=== PATIENT | female | born 1945 | race Caucasian/White ===

== ENCOUNTER 2018-01-10 23:13 | Inpatient (IN) | payer MEDICARE, MEDICAID ==
[2018-01-11] MEDS ORDERED: KETOROLAC TROMETHAMINE INJ/PF 30 MG/1 ML SDV IV ONE (00:12)
[2018-01-11] MEDS ORDERED: NORMAL SALINE 1000 ML 1,000 ML IV ONE (00:12)
[2018-01-11] MEDS ORDERED: LIDOCAINE 5% (700 MG) TRANSDERMAL ADH..PATCH TP ONE (00:28)
--- NOTE | 2018-01-11 00:29 | ER Document Report ---
ED General - General Chief Complaint: Flank Pain Stated Complaint: FLANK PAIN Time Seen by Provider: 01/11/18 00:11 Notes: Patient is a 72-year-old female with a past medical history of emphysema but no baseline oxygen dependence who presents with 3 days of progressively worsening left lower rib pain that became much worse this evening. She states the pain became much more intense abruptly without clear trigger. She describes it as a stabbing, aching pain that is worsened by taking a deep breath. Nothing improves the pain. She denies any history of similar symptoms in the past. She has not seen her general doctor regarding today's concerns. She denies any prior history of DVT or pulmonary embolus. No use of estrogen. Her family does note that she has had some mild swelling to her left upper extremity over the last several days. - Related Data Allergies/Adverse Reactions: clonazepam [From Klonopin] Allergy (Verified 01/11/18 00:47) paroxetine [From Paxil] Allergy (Verified 01/11/18 00:47) sulfamethoxazole [From Bactrim] Allergy (Verified 01/11/18 00:47) trimethoprim [From Bactrim] Allergy (Verified 01/11/18 00:47) Past Medical History - General Information source: Patient - Social History Smoking Status: Former Smoker Frequency of alcohol use: None Drug Abuse: None Lives with: Family Family History: Reviewed & Not Pertinent Review of Systems - Review of Systems Notes: Constitutional: Negative for fever. HENT: Negative for sore throat. Eyes: Negative for visual changes. Cardiovascular: Negative for chest pain. Respiratory: Positive for shortness of breath. Gastrointestinal: Negative for abdominal pain, vomiting or diarrhea. Genitourinary: Negative for dysuria. Musculoskeletal: Positive for pleuritic left-sided pain Skin: Negative for rash. Neurological: Negative for headaches, weakness or numbness. 10 point ROS negative except as marked above and in HPI. Physical Exam - Vital signs Vitals: Temp Pulse Resp BP Pulse Ox 97.9 F 77 18 101/68 89 L 01/10/18 23:51 01/10/18 23:51 01/10/18 23:51 01/10/18 23:51 01/10/18 23:51 Interpretation: Hypoxic Notes: PHYSICAL EXAMINATION: GENERAL: Appears moderately uncomfortable but in no acute distress HEAD: Atraumatic, normocephalic. EYES: Pupils equal round and reactive to light, extraocular movements intact, sclera anicteric, conjunctiva are normal. ENT: nares patent, oropharynx clear without exudates. Moderately dry mucous membranes. NECK: Normal range of motion, supple without lymphadenopathy LUNGS: Breath sounds clear to auscultation bilaterally and equal. No wheezes rales or rhonchi. HEART: Regular rate and rhythm without murmurs ABDOMEN: Soft, nontender, normoactive bowel sounds. No guarding, no rebound. No masses appreciated. EXTREMITIES: Normal range of motion, mild swelling to the left upper extremity just above the medial epicondyle NEUROLOGICAL: No focal neurological deficits. Moves all extremities spontaneously and on command. PSYCH: Normal mood, normal affect. SKIN: Warm, Dry, normal turgor, no rashes or lesions noted. Course - Re-evaluation Re-evalutation: 01/11/18 00:28 Patient presents with 2 days of progressively worsening left lower rib pain on inspiration consistent with pleuritic pain. Vitals at time of presentation are notable for mild hypoxia with saturations on room air between 89-90% and she does not normally have a baseline oxygen dependency. My primary concern is for a possible acute pulmonary embolus given clinical history although she is not tachycardic, does not use supplemental estrogen, no history of similar in the past and no history of chemotherapy. Will proceed with d-dimer with a cut off of 0.74. Also obtain a chest x-ray as a pneumonia could present in a similar fashion although patient is not having fever or constitutional symptoms. Pyonephritis could alternatively be considered although it would be atypical for this to have only pain with inspiration. Abdominal exam tenderness rebound or guarding. Will proceed with labs, chest x-ray, symptomatic control and reassess the patient. 01/11/18 01:42 D-dimer is markedly elevated. Will proceed with CTA of the chest. Patient does have some swelling just above the medial epicondyle on the left worrisome for possible upper extremity DVT in conjunction with her presentation. 01/11/18 03:[address] does show multiple pulmonary emboli as well as findings consistent with a new diagnosis of lung malignancy. I have gone to the bedside and explained these findings to the patient as well as her need for hospitalization. Lovenox has been started. The patient has verbalized understanding of this grave diagnosis. I have discussed with the hospitalist for admission and he has accepted. - Vital Signs Vital signs: Temp Pulse Resp BP Pulse Ox 97.9 F 77 14 121/68 94 01/10/18 23:51 01/10/18 23:51 01/11/18 02:09 01/11/18 02:09 01/11/18 00:55 - Laboratory Result Diagrams: 01/11/18 00:35 01/11/18 00:35 Laboratory results interpreted by me: 01/11/18 01/11/18 01/11/18 00:35 00:35 00:35 WBC 12.2 H Absolute Neutrophils 8.8 H D-Dimer 9.61 H Glucose 139 H Urine Protein 01/11/18 00:50 WBC Absolute Neutrophils D-Dimer Glucose Urine Protein 30 H - Diagnostic Test Radiology reviewed: Image reviewed, Reports reviewed Radiology results interpreted by me: 01/11/18 02:34 Chest x-ray: No acute infiltrate or pneumothorax - EKG Interpretation by Me Additional EKG results interpreted by me: 01/11/18 02:34 Sinus rhythm. Rate 84. No ST elevations or depressions. QTC 402. PACs are present Discharge - Discharge Clinical Impression: Bilateral pulmonary embolism, Lung nodules, Hypoxia, Pleuritic pain Condition: Fair Disposition: ADMITTED INPATIENT Admitting Provider: Hospitalist Unit Admitted: Telemetry
[2018-01-11 00:57] LABS: ABSOLUTE BASOPHILS # (AUTO) 0.1 10^3/uL (0.0-0.2); ABSOLUTE EOSINOPHILS # (AUTO) 0.2 10^3/uL (0.0-0.6); ABSOLUTE LYMPHOCYTES (AUTO) 2.1 10^3/uL (0.5-4.7); ABSOLUTE NEUT (AUTO) 8.8 10^3/uL (1.7-8.2); BASOPHILS % (AUTO) 1.2 % (0-2); EOSINOPHILS % (AUTO) 1.4 % (0-6); HEMATOCRIT 36.1 % (36.0-47.0); HEMOGLOBIN 12.4 g/dL (12.0-15.5); LYMPHOCYTES % (AUTO) 17.2 % (13-45); MEAN CORPUSCULAR HEMOGLOBIN 29.3 pg (27.0-33.4); MEAN CORPUSCULAR HGB CONC 34.4 g/dL (32.0-36.0); MEAN CORPUSCULAR VOLUME 85 fl (80-97); MONOCYTES % (AUTO) 8.2 % (3-13); PLATELET COUNT 232 10^3/uL (150-450); RED BLOOD COUNT 4.24 10^6/uL (3.72-5.28); RED CELL DISTRIBUTION WIDTH 13.2 % (11.5-14.0); TOTAL CELLS COUNTED % (AUTO) 100 %; WHITE BLOOD COUNT 12.2 10^3/uL (4.0-10.5)
[2018-01-11 01:09] LABS: ALANINE AMINOTRANSFERASE 16 U/L (9-52); ALBUMIN 3.7 g/dL (3.5-5.0); ALKALINE PHOSPHATASE 92 U/L (38-126); ANION GAP 11 (5-19); ASPARTATE AMINO TRANSFERASE 17 U/L (14-36); BILIRUBIN,DIRECT 0.3 mg/dL (0.0-0.4); BILIRUBIN,TOTAL 0.5 mg/dL (0.2-1.3); BLOOD UREA NITROGEN 11 mg/dL (7-20); CARBON DIOXIDE 25 mmol/L (22-30); CHLORIDE 105 mmol/L (98-107); GLUCOSE 139 mg/dL (75-110); POTASSIUM 4.1 mmol/L (3.6-5.0); SODIUM 141.3 mmol/L (137-145); TOTAL PROTEIN 6.6 g/dL (6.3-8.2)
[2018-01-11 01:10] LABS: APPEARANCE,URINE CLEAR; BILIRUBIN,URINE NEGATIVE (NEGATIVE); COLOR,URINE YELLOW; GLUCOSE, URINE NEGATIVE (NEGATIVE); KETONES,URINE NEGATIVE (NEGATIVE); LEUKOCYTE ESTERASE,URINE NEGATIVE (NEGATIVE); NITRITE,URINE NEGATIVE (NEGATIVE); PROTEIN,URINE 30 mg/dL (NEGATIVE); UROBILINOGEN,URINE NEGATIVE mg/dL (<2.0)
--- NOTE | 2018-01-11 02:54 | RADIOLOGY REPORT (SQ) ---
EXAM DESCRIPTION: XR CHEST 1 VIEW COMPLETED DATE/TME: 01/11/2018 00:26 CLINICAL HISTORY: sob COMPARISON: None. FINDINGS: Single frontal view of the chest. The cardiomediastinal silhouette has normal size and contour. No consolidation, pneumothorax, or pleural effusion. No displaced rib fractures identified. Leads overlie the chest. Upper abdominal soft tissues are unremarkable. IMPRESSION: 1. No acute pulmonary process identified.
[2018-01-11] MEDS ORDERED: ENOXAPARIN SODIUM INJ 80 MG/0.8 ML DISP.SYRIN SUBCUT SCH ×2 (03:15→18:00)
--- NOTE | 2018-01-11 03:15 | RADIOLOGY REPORT (SQ) ---
EXAM DESCRIPTION: CT CHEST ANGIOGRAPHY WITHOUT THEN WITH IV CONTRAST COMPLETED DATE/TME: 01/11/2018 01:41 CLINICAL HISTORY: ELEVATED D-DIMER COMPARISON: None Available. TECHNIQUE: CTA of the chest obtained following the uncomplicated intravenous administration of 65 mL Isovue-370. 3-D/MIP reformatted images of the chest available for evaluation. DLP: 579.94 mGycm FINDINGS: Chest: Pulmonary arteries: Contrast bolus is adequate. Acute filling defects noted in the lingular, left lower lobar, right lower lobar, and right middle lobar and segmental pulmonary arterial branches. Enlargement of the main pulmonary artery. Moderate clot burden. Thyroid: 2.0 cm peripherally calcified right thyroid nodule. Great Vessels:Great vessels have normal anatomic configuration. Thoracic Aorta: After scar calcification of the thoracic aorta. Heart: No definite right heart strain. Coronary artery atherosclerosis. No pericardial effusion or cardiomegaly. Lymph Nodes: Calcified mediastinal lymph nodes. Esophagus:No abnormalities of the esophagus identified. Other:No additional findings. Lungs: Severe centrilobular emphysematous changes. Spiculated superior segment left lower lobe pulmonary nodule measuring 1.4 cm. Second spiculated nodule involving the right upper lobe best seen on image #29 measuring 1.2 cm. Linear discoid atelectasis in the right lower lobe. There are 2 0.4 cm pulmonary nodules in the right lower lobe. No lobar consolidation. Pleura:No pleural effusion or pneumothorax. Trachea/Airways:No abnormalities of the visualized trachea or airways. Bones: Degenerative change of the spine. Upper Abdomen:Limited images of the upper abdomen demonstrate no definite abnormalities of visualized portions of the liver, gallbladder, pancreas, spleen, adrenal glands, or kidneys. IMPRESSION: 1. Findings compatible with acute pulmonary embolus involving the lobar, segmental, and subsegmental pulmonary arteries of the lingula, right middle lobe, and bilateral lower lobes. Moderate clot burden. No definite right heart strain. 2. Bilateral spiculated pulmonary nodules, with the left superior segment lower lobe pulmonary nodule measuring 1.4 cm and the right upper lobe nodule measuring 1.2 cm. These are concerning for malignancy. Consider biopsy or PET/CT. 3. Coronary artery atherosclerosis. 4. Centrilobular emphysematous changes. 5. 2.0 cm right thyroid nodule. Correlation with thyroid ultrasound Urgent finding reported to Dr. Jurado at 01/11/2018 2:08 AM CDT This exam was performed according to our departmental dose-optimization program, which includes automated exposure control, adjustment of the mA and/or kV according to patient size and/or use of iterative reconstruction technique.
[2018-01-11] MEDS ORDERED: ACETAMINOPHEN 325 MG TABLET PO ONE (03:35)
[2018-01-11] MEDS ORDERED: IPRATROPIUM/ALBUTEROL 0.5-2.5 MG/3 ML AMPUL NEB PRN (03:44)
[2018-01-11] MEDS ORDERED: OXYCODONE-ACETAMINOPHEN 5-325 MG TABLET PO PRN (03:44)
[2018-01-11] MEDS ORDERED: ONDANSETRON HCL INJ/PF 4 MG/2 ML SDV IV PRN (03:44)
--- NOTE | 2018-01-11 04:05 | PDOC H&P ---
History of Present Illness Admission Date/PCP: 01/11/18 03:39 History of Present Illness: CHRISTIAN MIKE is a 72 year old female patient with past medical history of 2 strokes, [place] and she is status post stent placement and COPD presented with chest pain. Patient reports his she has been in her usual baseline state of health up until 3 days when she started to have left chest pain characterized as sharp stabbing and it gets worse progressively. Since she has elevated d-dimer CT of the chest was done and it reported as acute bilateral emboli and this incidental finding of bilateral spiculated pulmonary nodules which worrisome for malignancy. Of note patient had been a heavy smoker and she quit 6 months ago. She denies fever, chills, cough, palpitation or diaphoresis. She does not have nausea, vomiting, abdominal pain or diarrhea. Past Medical History Cardiac Medical History: Reports: Coronary Artery Disease, Myocardial Infarction Pulmonary Medical History: Reports: Chronic Obstructive Pulmonary Disease (COPD) Past Surgical History Past Surgical History: Reports: Cardiac Catheterization Social History Lives with: Family Smoking Status: Former Smoker Frequency of Alcohol Use: None Hx Recreational Drug Use: No Drugs: None - Advance Directive Resuscitation Status: Full Code Family History Family History: Reviewed & Not Pertinent, DM, Hypertension Parental Family History Reviewed: Yes Children Family History Reviewed: Yes Sibling(s) Family History Reviewed.: Yes Medication/Allergy Allergies/Adverse Reactions: clonazepam [From Klonopin] Allergy (Verified 01/11/18 00:47) paroxetine [From Paxil] Allergy (Verified 01/11/18 00:47) sulfamethoxazole [From Bactrim] Allergy (Verified 01/11/18 00:47) trimethoprim [From Bactrim] Allergy (Verified 01/11/18 00:47) Review of Systems Constitutional: ABSENT: chills, fever(s), headache(s), weight gain, weight loss Eyes: ABSENT: visual disturbances Cardiovascular: ABSENT: chest pain, dyspnea on exertion, edema, orthropnea, palpitations Respiratory: PRESENT: other - Chest pain Gastrointestinal: ABSENT: abdominal pain, constipation, diarrhea, hematemesis, hematochezia, nausea, vomiting Neurological: ABSENT: abnormal gait, abnormal speech, confusion, dizziness, focal weakness, syncope Physical Exam Vital Signs: Temp Pulse Resp BP Pulse Ox 97.9 F 77 14 121/68 94 01/10/18 23:51 01/10/18 23:51 01/11/18 02:09 01/11/18 02:09 01/11/18 00:55 General appearance: PRESENT: mild distress Head exam: PRESENT: atraumatic, normocephalic Eye exam: PRESENT: conjunctiva pink, EOMI, PERRLA. ABSENT: scleral icterus Neck exam: ABSENT: carotid bruit, JVD, lymphadenopathy, thyromegaly Respiratory exam: PRESENT: wheezes - Mild wheezing Cardiovascular exam: PRESENT: RRR. ABSENT: diastolic murmur, rubs, systolic murmur GI/Abdominal exam: PRESENT: normal bowel sounds, soft. ABSENT: distended, guarding, mass, organolmegaly, rebound, tenderness Extremities exam: PRESENT: full ROM. ABSENT: calf tenderness, clubbing, pedal edema Neurological exam: PRESENT: alert, awake, oriented to time, oriented to situation Psychiatric exam: PRESENT: normal mood Results Impressions: Chest X-Ray 01/11/18 00:26 IMPRESSION: 1. No acute pulmonary process identified. Chest/Abdomen CTA 01/11/18 01:41 IMPRESSION: 1. Findings compatible with acute pulmonary embolus involving the lobar, segmental, and subsegmental pulmonary arteries of the lingula, right middle lobe, and bilateral lower lobes. Moderate clot burden. No definite right heart strain. 2. Bilateral spiculated pulmonary nodules, with the left superior segment lower lobe pulmonary nodule measuring 1.4 cm and the right upper lobe nodule measuring 1.2 cm. These are concerning for malignancy. Consider biopsy or PET/CT. 3. Coronary artery atherosclerosis. 4. Centrilobular emphysematous changes. 5. 2.0 cm right thyroid nodule. Correlation with thyroid ultrasound Urgent finding reported to Dr. Jurado at 01/11/2018 2:08 AM CDT This exam was performed according to our departmental dose-optimization program, which includes automated exposure control, adjustment of the mA and/or kV according to patient size and/or use of iterative reconstruction technique. Assessment & Plan - Diagnosis (1) Acute Bilateral pulmonary embolus Is this a current diagnosis for this admission?: Yes Plan: Patient has been started on Lovenox 65 mg subcu twice daily. I overlapped her with Coumadin. PT/INR in the morning (2) Bilateral lung nodules Is this a current diagnosis for this admission?: Yes Plan: With history of long-standing heavy smoking, these nodules are worrisome for malignancy. I will request CT-guided lung biopsy and consult oncologist. (3) COPD (chronic obstructive pulmonary disease) Qualifiers: COPD type: emphysema Emphysema type: centrilobular Qualified Code(s): J43.2 - Centrilobular emphysema Is this a current diagnosis for this admission?: Yes Plan: As needed bronchodilator and supplemental oxygen. (4) Coronary artery disease Qualifiers: Coronary Disease-Associated Artery/Lesion type: [place] artery Is this a current diagnosis for this admission?: Yes Plan: Stable no angina. Continue her home medications. - Time Time Spent: 30 to 50 Minutes - Inpatient Certification Medical Necessity: Need Close Monitoring Due to Risk of Patient Decompensation, Need For Continuous Telemetry Monitoring
[2018-01-11 04:07] LABS: INTERNATIONAL RATION (INR) 0.98; PROTHROMBIN TIME 13.5 SEC (11.4-15.4)
[2018-01-11 04:12] LABS: NT PRO BNP 286 pg/mL (5-900)
[2018-01-11 04:14] LABS: TROPONIN I < 0.012 ng/mL
[2018-01-11 06:01] LABS: HEMATOCRIT 33.9 % (36.0-47.0); HEMOGLOBIN 11.4 g/dL (12.0-15.5); MEAN CORPUSCULAR HEMOGLOBIN 28.6 pg (27.0-33.4); MEAN CORPUSCULAR HGB CONC 33.5 g/dL (32.0-36.0); MEAN CORPUSCULAR VOLUME 85 fl (80-97); PLATELET COUNT 217 10^3/uL (150-450); RED BLOOD COUNT 3.97 10^6/uL (3.72-5.28); RED CELL DISTRIBUTION WIDTH 13.3 % (11.5-14.0); WHITE BLOOD COUNT 9.2 10^3/uL (4.0-10.5)
[2018-01-11] MEDS: LANSOPRAZOLE 30 MG TAB.RAP.DR PO SCH (06:59)
--- NOTE | 2018-01-11 08:32 | EKG REPORT ---
SEVERITY:- ABNORMAL ECG - SINUS RHYTHM MULTIPLE ATRIAL PREMATURE COMPLEXES BORDERLINE T ABNORMALITIES, DIFFUSE, : Confirmed by: Tay Paula MD 11-Jan-2018 08:31:50
--- NOTE | 2018-01-11 13:02 | PDOC CONSULTATION ---
Consultation Consult Date: 01/11/18 Attending physician:: JAIRO VIDAL Consult reason:: Bilateral pulmonary nodules, PE History of Present Illness Admission Date/PCP: 01/11/18 03:39 Patient complains of: Shortness of breath, left-sided chest pain History of Present Illness: CHRISTIAN MIKE is a 72 year old female with extensive smoking history, quit about 6 months ago but prior to that had about 79-[id number] history of tobacco, presented with a 2 day history of increasing shortness of breath, and left- sided chest pain, especially in deep inspiration, ultimately that brought her into the ED where they did CT of the chest and this indicated bilateral PE, with large burden of clot, but also bilateral pulmonary nodules left and right nodules that were up to 1.2-1.4 cm. She denies any weight loss, at rest she is short of breath at times, and does probably have some element of COPD. She is not on home O2 however. Past Medical History Cardiac Medical History: Reports: Coronary Artery Disease, Myocardial Infarction Pulmonary Medical History: Reports: Chronic Obstructive Pulmonary Disease (COPD) Psychiatric Medical History: Reports: Depression Past Surgical History Past Surgical History: Reports: Cardiac Catheterization Social History Information Source: Patient Lives with: Family Smoking Status: Former Smoker Cigarettes Packs Per Day: 1 Number of Years Smokin Last Time Smoked: 08-17-17 Frequency of Alcohol Use: None Hx Recreational Drug Use: No Drugs: None Hx Prescription Drug Abuse: No - Advance Directive Resuscitation Status: Full Code Family History Family History: Reviewed & Not Pertinent, DM, Hypertension Parental Family History Reviewed: Yes Children Family History Reviewed: Yes Sibling(s) Family History Reviewed.: Yes Medication/Allergy Home Medications: Albuterol Sulfate [Proair HFA] 2 puff IH Q6HP PRN 01/11/18 Aspirin [Aspirin EC] 81 mg PO DAILY 01/11/18 Ciprofloxacin HCl [Cipro] 250 mg PO [id number] 01/11/18 Ibuprofen [Motrin 800 mg Tablet] 800 mg PO Q8HP PRN 01/11/18 Metoprolol Succinate [Toprol Xl] 25 mg PO DAILY 01/11/18 Nitroglycerin [Nitrostat] 0.4 mg SL DAILYP PRN 01/11/18 Pantoprazole Sodium [Protonix] 40 mg PO DAILY 01/11/18 Pravastatin Sodium [Pravachol] 40 mg PO DAILY 01/11/18 Sertraline HCl [Zoloft 50 mg Tablet] 50 mg PO DAILY 01/11/18 Allergies/Adverse Reactions: clonazepam [From Klonopin] Allergy (Verified 01/11/18 00:47) paroxetine [From Paxil] Allergy (Verified 01/11/18 00:47) sulfamethoxazole [From Bactrim] Allergy (Verified 01/11/18 00:47) trimethoprim [From Bactrim] Allergy (Verified 01/11/18 00:47) Review of Systems Constitutional: ABSENT: chills, fever(s), headache(s), weight gain, weight loss Eyes: ABSENT: visual disturbances Ears: ABSENT: hearing changes Cardiovascular: PRESENT: chest pain, dyspnea on exertion. ABSENT: edema, orthropnea, palpitations Respiratory: ABSENT: cough, hemoptysis Gastrointestinal: ABSENT: abdominal pain, constipation, diarrhea, hematemesis, hematochezia, nausea, vomiting Genitourinary: ABSENT: dysuria, hematuria Musculoskeletal: ABSENT: joint swelling Integumentary: ABSENT: rash, wounds Neurological: ABSENT: abnormal gait, abnormal speech, confusion, dizziness, focal weakness, syncope Psychiatric: ABSENT: anxiety, depression, homidical ideation, suicidal ideation Endocrine: ABSENT: cold intolerance, heat intolerance, polydipsia, polyuria Hematologic/Lymphatic: ABSENT: easy bleeding, easy bruising Physical Exam Vital Signs: Temp Pulse Resp BP Pulse Ox 97.7 F 67 16 98/42 L 96 01/11/18 12:06 01/11/18 12:06 01/11/18 12:06 01/11/18 12:06 01/11/18 12:06 Intake & Output 01/10/18 01/11/18 01/12/18 06:59 06:59 06:59 Weight 68.8 kg General appearance: PRESENT: no acute distress, well-developed, well-nourished Head exam: PRESENT: atraumatic, normocephalic Eye exam: PRESENT: conjunctiva pink, EOMI, PERRLA. ABSENT: scleral icterus Ear exam: PRESENT: normal external ear exam Mouth exam: PRESENT: moist, tongue midline Neck exam: ABSENT: carotid bruit, JVD, lymphadenopathy, thyromegaly Respiratory exam: PRESENT: clear to auscultation mela. ABSENT: rales, rhonchi, wheezes Cardiovascular exam: PRESENT: RRR. ABSENT: diastolic murmur, rubs, systolic murmur Pulses: PRESENT: normal dorsalis pedis pul Vascular exam: PRESENT: normal capillary refill GI/Abdominal exam: PRESENT: normal bowel sounds, soft. ABSENT: distended, guarding, mass, organolmegaly, rebound, tenderness Rectal exam: PRESENT: deferred Extremities exam: PRESENT: full ROM. ABSENT: calf tenderness, clubbing, pedal edema Neurological exam: PRESENT: alert, awake, oriented to person, oriented to place , oriented to time, oriented to situation, CN II-XII grossly intact. ABSENT: motor sensory deficit Psychiatric exam: PRESENT: appropriate affect, normal mood. ABSENT: homicidal ideation, suicidal ideation Skin exam: PRESENT: dry, intact, warm. ABSENT: cyanosis, rash Results Laboratory Results: 01/11/18 05:53 01/11/18 05:53 WBC 9.2 RBC 3.97 Hgb 11.4 L Hct 33.9 L MCV 85 MCH 28.6 MCHC 33.5 RDW 13.3 Plt Count 217 Impressions: Chest X-Ray 01/11/18 00:26 IMPRESSION: 1. No acute pulmonary process identified. Chest/Abdomen CTA 01/11/18 01:41 IMPRESSION: 1. Findings compatible with acute pulmonary embolus involving the lobar, segmental, and subsegmental pulmonary arteries of the lingula, right middle lobe, and bilateral lower lobes. Moderate clot burden. No definite right heart strain. 2. Bilateral spiculated pulmonary nodules, with the left superior segment lower lobe pulmonary nodule measuring 1.4 cm and the right upper lobe nodule measuring 1.2 cm. These are concerning for malignancy. Consider biopsy or PET/CT. 3. Coronary artery atherosclerosis. 4. Centrilobular emphysematous changes. 5. 2.0 cm right thyroid nodule. Correlation with thyroid ultrasound Urgent finding reported to Dr. Jurado at 01/11/2018 2:08 AM CDT This exam was performed according to our departmental dose-optimization program, which includes automated exposure control, adjustment of the mA and/or kV according to patient size and/or use of iterative reconstruction technique. Status: Image reviewed by me Assessment & Plan - Diagnosis (1) Acute Bilateral pulmonary embolus Is this a current diagnosis for this admission?: Yes Plan: Bilateral PE, I would like to switch him from Lovenox and warfarin to Xarelto. She will be on Xarelto 15 mg twice daily. I have asked her to try and get up and walk down the [place] today and see how she feels, she really needs to feel appropriate with at least walking around a little bit without severe chest pain shortness of breath to be able to go home. (2) Bilateral lung nodules Is this a current diagnosis for this admission?: Yes Plan: Overall concerning for malignancy but can be something else, we would like to proceed with PET/CT as an outpatient. Would not consider CT-guided biopsy now, would want her PE to be treated for at least 2 weeks prior to doing this. Would also want to confirm that these are PET positive lesions before we biopsied her given her current lung status as she has the new PE and known COPD and it would be very concerning to have pneumothorax. - Time Time Spent: Greater than 70 Minutes Medications reviewed and adjusted accordingly: Yes Within: within 48 hours - Inpatient Certification Based on my medical assessment, after consideration of the patient's comorbidities, presenting symptoms, or acuity I expect that the services needed warrant INPATIENT care.: Yes I certify that my determination is in accordance with my understanding of Medicare's requirements for reasonable and necessary INPATIENT services [42 CFR 412.3e].: Yes Medical Necessity: Need For Continuous Telemetry Monitoring, Risk of Complication if Not Cared For in Hospital
[2018-01-11] MEDS ORDERED: ALBUTEROL SULFATE HFA (90 MCG/PUFF) 8 GM MDI (1 MDI/ER DISP) IH PRN (14:10)
--- NOTE | 2018-01-11 14:13 | PDOC PROGRESS REPORT ---
Subjective Progress Note for:: 01/11/18 Subjective:: Patient is breathing well today she says. She was having significant left lateral lower pleuritic chest pain which is much improved she states. No fevers or chills. No sputum production. No leg swelling or pain. Spoke at length about both her pulmonary emboli and the spiculated lung nodules. Her appetite is fine. No nausea vomiting abdominal pain. Urinating normally. Reason For Visit: ACUTE BILATERAL PULMONARY EMBOLISM. BILATERAL Physical Exam Vital Signs: Temp Pulse Resp BP Pulse Ox 97.7 F 67 16 98/42 L 96 01/11/18 12:06 01/11/18 12:06 01/11/18 12:06 01/11/18 12:06 01/11/18 12:06 Intake & Output 01/10/18 01/11/18 01/12/18 06:59 06:59 06:59 Weight 68.8 kg General appearance: PRESENT: no acute distress, cooperative, well-developed, well-nourished Head exam: PRESENT: atraumatic, normocephalic Eye exam: ABSENT: conjunctival injection, scleral icterus Mouth exam: PRESENT: moist Respiratory exam: PRESENT: decreased breath sounds, unlabored. ABSENT: rales, rhonchi, wheezes Cardiovascular exam: PRESENT: RRR. ABSENT: systolic murmur Pulses: PRESENT: normal radial pulses GI/Abdominal exam: PRESENT: normal bowel sounds, soft. ABSENT: distended, guarding, tenderness Rectal exam: PRESENT: deferred Extremities exam: ABSENT: pedal edema Musculoskeletal exam: PRESENT: normal inspection Neurological exam: PRESENT: alert, awake, oriented to person, oriented to place , oriented to situation, CN II-XII grossly intact Psychiatric exam: PRESENT: appropriate affect. ABSENT: anxious Skin exam: PRESENT: dry, intact, warm Results Laboratory Results: 01/11/18 05:53 01/11/18 05:53 WBC 9.2 RBC 3.97 Hgb 11.4 L Hct 33.9 L MCV 85 MCH 28.6 MCHC 33.5 RDW 13.3 Plt Count 217 Impressions: Chest X-Ray 01/11/18 00:26 IMPRESSION: 1. No acute pulmonary process identified. Chest/Abdomen CTA 01/11/18 01:41 IMPRESSION: 1. Findings compatible with acute pulmonary embolus involving the lobar, segmental, and subsegmental pulmonary arteries of the lingula, right middle lobe, and bilateral lower lobes. Moderate clot burden. No definite right heart strain. 2. Bilateral spiculated pulmonary nodules, with the left superior segment lower lobe pulmonary nodule measuring 1.4 cm and the right upper lobe nodule measuring 1.2 cm. These are concerning for malignancy. Consider biopsy or PET/CT. 3. Coronary artery atherosclerosis. 4. Centrilobular emphysematous changes. 5. 2.0 cm right thyroid nodule. Correlation with thyroid ultrasound Urgent finding reported to Dr. Jurado at 01/11/2018 2:08 AM CDT This exam was performed according to our departmental dose-optimization program, which includes automated exposure control, adjustment of the mA and/or kV according to patient size and/or use of iterative reconstruction technique. Assessment & Plan - Diagnosis (1) Bilateral lung nodules Is this a current diagnosis for this admission?: Yes Plan: Spiculated lesions in both lungs. Long-standing tobacco history.SHe has been seen by Dr. Garcia who is consulting. Now we will continue anticoagulation with Xarelto and Dr. Garcia will see her in the office as an outpatient, he will plan for PET scan to better evaluate the lesions and to see if there are other suspicious lesions. Patient would like to stay locally for now for this workup. Her daughter and granddaughters live in this area. She lives 3 hours away near her sister. (2) Bilateral pulmonary embolism Is this a current diagnosis for this admission?: Yes Plan: Will transition to Xarelto per Dr. Garcia. He will follow her in clinic. We will monitor her respiratory status and for evidence of right heart strain or other complications related to these pulmonary emboli for the next several days and then she will be discharged once appropriate. Monitor BMP and CBC. (3) COPD (chronic obstructive pulmonary disease) Qualifiers: COPD type: emphysema Emphysema type: centrilobular Qualified Code(s): J43.2 - Centrilobular emphysema Is this a current diagnosis for this admission?: Yes (4) Coronary artery disease Qualifiers: Coronary Disease-Associated Artery/Lesion type: kaw artery Is this a current diagnosis for this admission?: Yes Plan: Stable for now. Continue to monitor on telemetry. Restart home medications including daily aspirin and metoprolol succinate. (5) Pleuritic pain Is this a current diagnosis for this admission?: Yes Plan: Much improved. Patient does not want to try opioid pain medications at this time. She will continue with as needed Tylenol for now. - Time Time Spent with patient: 35 or more minutes Medications reviewed and adjusted accordingly: Yes Anticipated discharge: Home - Inpatient Certification Based on my medical assessment, after consideration of the patient's comorbidities, presenting symptoms, or acuity I expect that the services needed warrant INPATIENT care.: Yes I certify that my determination is in accordance with my understanding of Medicare's requirements for reasonable and necessary INPATIENT services [42 CFR 412.3e].: Yes Medical Necessity: Need Close Monitoring Due to Risk of Patient Decompensation
[2018-01-11] MEDS ORDERED: OXYCODONE HCL IR 5 MG TABLET ONE (15:46)
--- NOTE | 2018-01-11 15:51 | EKG REPORT ---
SEVERITY:- BORDERLINE ECG - SINUS RHYTHM BORDERLINE T ABNORMALITIES, ANT-LAT LEADS : Confirmed by: Tay Paula MD 11-Jan-2018 15:51:11
[2018-01-11] MEDS ORDERED: OXYCODONE HCL IR 5 MG TABLET PO PRN (16:03)
[2018-01-11] MEDS: RIVAROXABAN 15 MG TABLET PO SCH (17:30)
[2018-01-11] MEDS: ACETAMINOPHEN 325 MG TABLET PO PRN (20:41)
[2018-01-11] MEDS: ATORVASTATIN CALCIUM 10 MG TABLET PO SCH (21:56)
[2018-01-11] MEDS ORDERED: WARFARIN SODIUM 3 MG TABLET PO SCH (22:00)
[2018-01-12 06:01] LABS: HEMOGLOBIN 11.9 g/dL (12.0-15.5); MEAN CORPUSCULAR HEMOGLOBIN 28.8 pg (27.0-33.4); MEAN CORPUSCULAR VOLUME 85 fl (80-97); PLATELET COUNT 207 10^3/uL (150-450); RED BLOOD COUNT 4.14 10^6/uL (3.72-5.28); RED CELL DISTRIBUTION WIDTH 13.5 % (11.5-14.0); WHITE BLOOD COUNT 10.2 10^3/uL (4.0-10.5)
[2018-01-12 06:12] LABS: INTERNATIONAL RATION (INR) 1.47; PROTHROMBIN TIME 18.6 SEC (11.4-15.4)
[2018-01-12] MEDS: LANSOPRAZOLE 30 MG TAB.RAP.DR PO SCH ×2 (06:28→06:30)
[2018-01-12] MEDS: RIVAROXABAN 15 MG TABLET PO SCH ×2 (06:28→17:19)
[2018-01-12 06:34] LABS: ANION GAP 8 (5-19); BLOOD UREA NITROGEN 8 mg/dL (7-20); CALCIUM 9.1 mg/dL (8.4-10.2); CARBON DIOXIDE 30 mmol/L (22-30); CHLORIDE 106 mmol/L (98-107); GLUCOSE 106 mg/dL (75-110); POTASSIUM 4.8 mmol/L (3.6-5.0); SODIUM 143.6 mmol/L (137-145)
--- NOTE | 2018-01-12 08:16 | PDOC PROGRESS REPORT ---
Subjective Progress Note for:: 01/12/18 Subjective:: She seems better today, did walk out of the room a little bit. I saw that aspirin was restarted, I went ahead and discontinued it today, I do not believe it would be giving more of a benefit over full anticoagulation with Xarelto, and probably would increase bleeding risk. Reason For Visit: ACUTE BILATERAL PULMONARY EMBOLISM. BILATERAL Physical Exam Vital Signs: Temp Pulse Resp BP Pulse Ox 98.4 F 81 18 105/53 L 97 01/12/18 07:10 01/12/18 07:10 01/12/18 07:10 01/12/18 07:10 01/12/18 07:10 Intake & Output 01/11/18 01/12/18 01/13/18 06:59 06:59 06:59 Intake Total 1752 Balance 1752 Weight 68.8 kg 72.2 kg General appearance: PRESENT: no acute distress, well-developed, well-nourished Head exam: PRESENT: atraumatic, normocephalic Eye exam: PRESENT: conjunctiva pink, EOMI, PERRLA. ABSENT: scleral icterus Ear exam: PRESENT: normal external ear exam Mouth exam: PRESENT: moist, tongue midline Neck exam: ABSENT: carotid bruit, JVD, lymphadenopathy, thyromegaly Respiratory exam: PRESENT: clear to auscultation mela. ABSENT: rales, rhonchi, wheezes Cardiovascular exam: PRESENT: RRR. ABSENT: diastolic murmur, rubs, systolic murmur Pulses: PRESENT: normal dorsalis pedis pul Vascular exam: PRESENT: normal capillary refill GI/Abdominal exam: PRESENT: normal bowel sounds, soft. ABSENT: distended, guarding, mass, organolmegaly, rebound, tenderness Rectal exam: PRESENT: deferred Extremities exam: PRESENT: full ROM. ABSENT: calf tenderness, clubbing, pedal edema Neurological exam: PRESENT: alert, awake, oriented to person, oriented to place , oriented to time, oriented to situation, CN II-XII grossly intact. ABSENT: motor sensory deficit Psychiatric exam: PRESENT: appropriate affect, normal mood. ABSENT: homicidal ideation, suicidal ideation Skin exam: PRESENT: dry, intact, warm. ABSENT: cyanosis, rash Results Laboratory Results: 01/12/18 05:12 01/12/18 05:12 01/12/18 01/12/18 05:12 05:12 WBC 10.2 RBC 4.14 Hgb 11.9 L Hct 35.0 L MCV 85 MCH 28.8 MCHC 34.0 RDW 13.5 Plt Count 207 Sodium 143.6 Potassium 4.8 Chloride 106 Carbon Dioxide 30 Anion Gap 8 BUN 8 Creatinine 0.79 Est GFR ( Amer) > 60 Est GFR (Non-Af Amer) > 60 Glucose 106 Calcium 9.1 Impressions: Chest X-Ray 01/11/18 00:26 IMPRESSION: 1. No acute pulmonary process identified. Chest/Abdomen CTA 01/11/18 01:41 IMPRESSION: 1. Findings compatible with acute pulmonary embolus involving the lobar, segmental, and subsegmental pulmonary arteries of the lingula, right middle lobe, and bilateral lower lobes. Moderate clot burden. No definite right heart strain. 2. Bilateral spiculated pulmonary nodules, with the left superior segment lower lobe pulmonary nodule measuring 1.4 cm and the right upper lobe nodule measuring 1.2 cm. These are concerning for malignancy. Consider biopsy or PET/CT. 3. Coronary artery atherosclerosis. 4. Centrilobular emphysematous changes. 5. 2.0 cm right thyroid nodule. Correlation with thyroid ultrasound Urgent finding reported to Dr. Jurado at 01/11/2018 2:08 AM CDT This exam was performed according to our departmental dose-optimization program, which includes automated exposure control, adjustment of the mA and/or kV according to patient size and/or use of iterative reconstruction technique. Assessment & Plan - Diagnosis (1) Acute Bilateral pulmonary embolus Is this a current diagnosis for this admission?: Yes Plan: Continue with Xarelto, today I ordered home O2 eval, based upon that we could let her go with home oxygen if needed. She will need a Xarelto starter pack upon discharge. We will get DC planning involved. (2) Bilateral lung nodules Is this a current diagnosis for this admission?: Yes Plan: She does not want workup locally, the patient and her daughter has to go back to [facility], they want to be seen in [facility], at the [facility], we will set that up for her today. - Time Time Spent with patient: 35 or more minutes - Inpatient Certification Based on my medical assessment, after consideration of the patient's comorbidities, presenting symptoms, or acuity I expect that the services needed warrant INPATIENT care.: Yes I certify that my determination is in accordance with my understanding of Medicare's requirements for reasonable and necessary INPATIENT services [42 CFR 412.3e].: Yes Medical Necessity: Other - Home O2 evaluation
[2018-01-12] MEDS: ACETAMINOPHEN 325 MG TABLET PO PRN ×2 (08:45→23:30)
[2018-01-12] MEDS ORDERED: SERTRALINE HCL 50 MG TABLET PO SCH (10:00)
[2018-01-12] MEDS ORDERED: METOPROLOL SUCCINATE 25 MG TAB.SR.24H PO SCH (10:00)
[2018-01-12] MEDS ORDERED: (PENDING PHARMACY ID) (Pravastatin Sodium [Pravachol] 40 MG) PO SCH (10:00)
[2018-01-12] MEDS ORDERED: ASPIRIN 81 MG TABLET, ENT COATED PO SCH (10:00)
--- NOTE | 2018-01-12 17:40 | PROGRESS NOTE E ---
Progress Note NAME: CHRISTIAN MIKE : 1945 AGE: 72Y DATE: 01/12/2018 ROOM: 315 SUBJECTIVE: The patient is lying in bed. She states that she feels much better than when she came in. Still has some shortness of breath with exertion. The patient denies any dizziness or chest pain. No nausea, vomiting. The patient has been afebrile. Her blood pressure has been in a good range and the patient has not voiced any other concerns at this time. REVIEW OF SYSTEMS: Rest of review of systems negative. MEDICATIONS: Have been reviewed. OBJECTIVE: GENERAL: The patient is a 72-year-old female who is awake, alert, and oriented to person, place and situation, and she is verbal, conversational, does not appear to be distressed. VITAL SIGNS: As follows: Temperature is 98.4, pulse 81, respirations 18, blood pressure 105/53, oxygen saturation is 97% on 2.5 L nasal cannula. SKIN: Warm and dry. No rash. Not diaphoretic. HEENT: Pupils equal, round, reactive to light and accommodation. Conjunctivae pink., There is no evidence of JVP. CARDIOVASCULAR SYSTEM: Heart is regular. There is no murmur or rub. CHEST: Clear, symmetrical, unlabored. ABDOMEN: Soft, nontender, nondistended. BACK: No CVA tenderness, sacral edema. EXTREMITIES: No clubbing, cyanosis, edema. PSYCHIATRIC: Appropriate affect. Pleasant mood. DIAGNOSTICS: Lab values are as follows: Hematology obtained on 01/12/2018; WBCs are 10.2; hemoglobin is 1.9; hematocrit is 35.0; platelet count is 207,000. Chemistry obtained on 01/12/2018: Sodium is 143, potassium 4.8, chloride is 106, carbon dioxide 30, BUN 8, creatinine is 0.79, glucose 106, calcium is 9.1. IMPRESSION AND PLAN: 1. BILATERAL PULMONARY EMBOLI. The patient has been seen and evaluated by hematology. Will continue with the patient's Xarelto as per hematology and follow. 2. CHRONIC OBSTRUCTIVE PULMONARY DISEASE. Will continue the patient's home medications. The patient will be evaluated for home O2 today. If she does qualify, will arrange this. The patient does have a lengthy journey tomorrow and this will need to be set up prior to her discharge in the a.m. 3. ACUTE ON CHRONIC HYPOXEMIC RESPIRATORY FAILURE. The patient overall has improved and O2 demand has lessened. Will attempt to taper oxygen and follow. 4. CORONARY ARTERY DISEASE. Continue the patient's home medications. 5. BILATERAL LUNG NODULES. The patient has decided that she would like to be worked up in [place], closer to her home. The patient would like to be discharged in the morning if possible at an early hour before it gets too hot, as the vehicle does not have air conditioner. This is a reasonable request. CODE STATUS: The patient is a FULL CODE. DISPOSITION: Pending patient's symptomatology and diagnostic findings, will re-evaluate in the a.m. for discharge. TIME SPENT: Time spent on this followup including assessment, plan, physical examination, patient education, and review of records is 25 minutes. DICTATING PHYSICIAN: ZULEMA MONTENEGRO [id number] PHY#: [id number] ID: [id number] JOB#: [id number] ACCT: [id number] cc: >
[2018-01-12] MEDS: ATORVASTATIN CALCIUM 10 MG TABLET PO SCH (22:21)
[2018-01-13 05:04] LABS: INTERNATIONAL RATION (INR) 1.62
[2018-01-13 05:06] LABS: ABSOLUTE BASOPHILS # (AUTO) 0.2 10^3/uL (0.0-0.2); ABSOLUTE EOSINOPHILS # (AUTO) 0.2 10^3/uL (0.0-0.6); ABSOLUTE LYMPHOCYTES (AUTO) 2.5 10^3/uL (0.5-4.7); ABSOLUTE MONOCYTES (AUTO) 0.8 10^3/uL (0.1-1.4); ABSOLUTE NEUT (AUTO) 5.2 10^3/uL (1.7-8.2); BASOPHILS % (AUTO) 2.2 % (0-2); HEMATOCRIT 35.3 % (36.0-47.0); LYMPHOCYTES % (AUTO) 27.7 % (13-45); MEAN CORPUSCULAR HEMOGLOBIN 28.7 pg (27.0-33.4); MEAN CORPUSCULAR VOLUME 84 fl (80-97); MONOCYTES % (AUTO) 9.4 % (3-13); PLATELET COUNT 238 10^3/uL (150-450); RED BLOOD COUNT 4.18 10^6/uL (3.72-5.28); RED CELL DISTRIBUTION WIDTH 13.1 % (11.5-14.0); SEGMENTED NEUTROPHILS % (AUTO) 58.7 % (42-78); TOTAL CELLS COUNTED % (AUTO) 100 %; WHITE BLOOD COUNT 8.9 10^3/uL (4.0-10.5)
[2018-01-13 05:58] LABS: ANION GAP 9 (5-19); BLOOD UREA NITROGEN 9 mg/dL (7-20); CALCIUM 9.4 mg/dL (8.4-10.2); CARBON DIOXIDE 32 mmol/L (22-30); CHLORIDE 104 mmol/L (98-107); GLUCOSE 87 mg/dL (75-110); POTASSIUM 4.7 mmol/L (3.6-5.0); SODIUM 144.9 mmol/L (137-145)
[2018-01-13] MEDS: LANSOPRAZOLE 30 MG TAB.RAP.DR PO SCH (06:30)
[2018-01-13] MEDS: RIVAROXABAN 15 MG TABLET PO SCH (06:30)
[2018-01-13 07:43] VITALS: BP 130/62
--- NOTE | 2018-01-13 08:02 | PDOC DISCHARGE SUMMARY ---
General - Admit/Disc Date/PCP Admission Date/Primary Care Provider: 01/11/18 03:39 Discharge Date: 01/13/18 - Discharge Diagnosis (1) Acute Bilateral pulmonary embolus Is this a current diagnosis for this admission?: Yes (2) Bilateral lung nodules Is this a current diagnosis for this admission?: Yes (3) COPD (chronic obstructive pulmonary disease) Is this a current diagnosis for this admission?: Yes (4) Coronary artery disease Is this a current diagnosis for this admission?: Yes (6) Pleuritic pain Is this a current diagnosis for this admission?: Yes - Additional Information Resuscitation Status: Full Code Discharge Diet: Regular Discharge Activity: Activity As Tolerated, Balance Activity w/Rest Prescriptions: Rivaroxaban [Xarelto] 20 mg PO DAILY #30 tablet Rivaroxaban [Xarelto 15 mg Tablet] 15 mg PO Q12A 20 Days #40 tablet Home Medications: Albuterol Sulfate [Proair HFA] 2 puff IH Q6HP PRN 01/11/18 Aspirin [Aspirin EC] 81 mg PO DAILY 01/11/18 Metoprolol Succinate [Toprol Xl] 25 mg PO DAILY 01/11/18 Nitroglycerin [Nitrostat] 0.4 mg SL DAILYP PRN 01/11/18 Pantoprazole Sodium [Protonix] 40 mg PO DAILY 01/11/18 Pravastatin Sodium [Pravachol] 40 mg PO DAILY 01/11/18 Sertraline HCl [Zoloft 50 mg Tablet] 50 mg PO DAILY 01/11/18 Rivaroxaban [Xarelto 15 mg Tablet] 15 mg PO Q12A 20 Days #40 tablet 01/13/18 Rivaroxaban [Xarelto] 20 mg PO DAILY #30 tablet 01/13/18 History of Present Illness Patient complains of: Shortness of breath, pleuritic chest pain History of Present Illness: CHRISTIAN MIKE is a 72 year old female patient with past medical history of 2 strokes, [place] and she is status post stent placement and COPD presented with chest pain. Patient reports his she has been in her usual baseline state of health up until 3 days when she started to have left chest pain characterized as sharp stabbing and it gets worse progressively. Since she has elevated d-dimer CT of the chest was done and it reported as acute bilateral emboli and this incidental finding of bilateral spiculated pulmonary nodules which worrisome for malignancy. Of note patient had been a heavy smoker and she quit 6 months ago. She denies fever, chills, cough, palpitation or diaphoresis. She does not have nausea, vomiting, abdominal pain or diarrhea. Hospital Course Hospital Course: Patient was admitted to [facility] on telemetry. She was found to have bilateral pulmonary emboli on CTA. She was started on full dose lovenox therapy. Dr Garcia, hematology/oncology saw the patient in consult She was transitioned to xarelto therapy. She was found to continue to be hypoxemic on room air. SPO2 was 86 % at rest, improved to 95% with 2l/min nasal cannula. She was able to increase her activity. Today she feels well and ready for discharge. Physical Exam Vital Signs: Temp Pulse Resp BP Pulse Ox 97.4 F 66 18 130/62 H 100 01/13/18 07:04 01/13/18 07:04 01/13/18 07:04 01/13/18 07:04 01/13/18 07:04 Intake & Output 01/12/18 01/13/18 01/14/18 06:59 06:59 06:59 Intake Total 1752 1364 Balance 1752 1364 Weight 72.2 kg General appearance: PRESENT: no acute distress, well-developed, well-nourished Head exam: PRESENT: atraumatic, normocephalic Eye exam: PRESENT: conjunctiva pink, EOMI, PERRLA. ABSENT: scleral icterus Ear exam: PRESENT: normal external ear exam Mouth exam: PRESENT: moist, tongue midline Neck exam: ABSENT: carotid bruit, JVD, lymphadenopathy, thyromegaly Respiratory exam: PRESENT: clear to auscultation mela. ABSENT: rales, rhonchi, wheezes Cardiovascular exam: PRESENT: RRR. ABSENT: diastolic murmur, rubs, systolic murmur Pulses: PRESENT: normal dorsalis pedis pul Vascular exam: PRESENT: normal capillary refill GI/Abdominal exam: PRESENT: normal bowel sounds, soft. ABSENT: distended, guarding, mass, organolmegaly, rebound, tenderness Rectal exam: PRESENT: deferred Extremities exam: PRESENT: full ROM. ABSENT: calf tenderness, clubbing, pedal edema Neurological exam: PRESENT: alert, awake, oriented to person, oriented to place , oriented to time, oriented to situation, CN II-XII grossly intact. ABSENT: motor sensory deficit Psychiatric exam: PRESENT: appropriate affect, normal mood. ABSENT: homicidal ideation, suicidal ideation Skin exam: PRESENT: dry, intact, warm. ABSENT: cyanosis, rash Results Laboratory Results: 01/13/18 04:18 01/13/18 04:18 01/13/18 01/13/18 04:18 04:18 WBC 8.9 RBC 4.18 Hgb 12.0 Hct 35.3 L MCV 84 MCH 28.7 MCHC 34.0 RDW 13.1 Plt Count 238 Seg Neutrophils % 58.7 Lymphocytes % 27.7 Monocytes % 9.4 Eosinophils % 2.0 Basophils % 2.2 H Absolute Neutrophils 5.2 Absolute Lymphocytes 2.5 Absolute Monocytes 0.8 Absolute Eosinophils 0.2 Absolute Basophils 0.2 Sodium 144.9 Potassium 4.7 Chloride 104 Carbon Dioxide 32 H Anion Gap 9 BUN 9 Creatinine 0.78 Est GFR ( Amer) > 60 Est GFR (Non-Af Amer) > 60 Glucose 87 Calcium 9.4 Impressions: Chest X-Ray 01/11/18 00:26 IMPRESSION: 1. No acute pulmonary process identified. Chest/Abdomen CTA 01/11/18 01:41 IMPRESSION: 1. Findings compatible with acute pulmonary embolus involving the lobar, segmental, and subsegmental pulmonary arteries of the lingula, right middle lobe, and bilateral lower lobes. Moderate clot burden. No definite right heart strain. 2. Bilateral spiculated pulmonary nodules, with the left superior segment lower lobe pulmonary nodule measuring 1.4 cm and the right upper lobe nodule measuring 1.2 cm. These are concerning for malignancy. Consider biopsy or PET/CT. 3. Coronary artery atherosclerosis. 4. Centrilobular emphysematous changes. 5. 2.0 cm right thyroid nodule. Correlation with thyroid ultrasound Urgent finding reported to Dr. Jurado at 01/11/2018 2:08 AM CDT This exam was performed according to our departmental dose-optimization program, which includes automated exposure control, adjustment of the mA and/or kV according to patient size and/or use of iterative reconstruction technique. Qualifiers - * PATIENT BEING DISCHARGED WITH ANY OF THE FOLLOWING DIAGNOSIS: VTE (PE or DVT) VTE patient discharged on overlapping Therapy?: Yes Plan Discharge Plan: Home with daughter. She will follow up with primary care provider in one week Time Spent: Less than 30 Minutes
== END 2018-01-13 10:07 | disposition home or self-care (01) | DRG 175 ==
LOC: ER 23:13 → EH 01-11 03:39 → 3W 01-11 06:24
PROVIDERS: ADMIT Internal Medicine; ATTEND Internal Medicine
PROC: 3E0F73Z Introduction of Anti-inflammatory into Respiratory Tract, Via Natural or Artificial Opening (ICD-10-PCS; principal; 2018-01-11)
DX: I26.99 Other pulmonary embolism without acute cor pulmonale (principal); J96.21 Acute and chronic respiratory failure with hypoxia; R91.8 Other nonspecific abnormal finding of lung field; I25.10 Atherosclerotic heart disease of native coronary artery without angina pectoris; R79.1 Abnormal coagulation profile; J43.2 Centrilobular emphysema; E04.1 Nontoxic single thyroid nodule; F32.9 Major depressive disorder, single episode, unspecified; I25.2 Old myocardial infarction; Z79.899 Other long term (current) drug therapy; Z86.73 Personal history of transient ischemic attack (TIA), and cerebral infarction without residual deficits; Z95.5 Presence of coronary angioplasty implant and graft; Z87.891 Personal history of nicotine dependence; Z88.3 Allergy status to other anti-infective agents; Z88.2 Allergy status to sulfonamides; Z88.8 Allergy status to other drugs, medicaments and biological substances; Z83.3 Family history of diabetes mellitus; Z82.49 Family history of ischemic heart disease and other diseases of the circulatory system
CPT/HCPCS: 36415; 71045; 71275; 80048; 80053; 81001; 83880; 84484; 85025; 85027; 85379; 85610; 87086; 93005; 93010; 96361; 96372; 96374; 99285; J1650; J1885; J3490; J7030